=== PATIENT | male | born 1980 | race American Indian/Alaskan Native ===

== ENCOUNTER 2016-10-04 02:00 | Emergency (ER) | payer OTHER ==
[2016-10-04 02:02] VITALS: BMI 29.9
[2016-10-04 02:38] VITALS: BP 121/78; PULSE 65; RESP 18; TEMP 98.2; O2SAT 97
[2016-10-04] MEDS ORDERED: TDAP Vaccine 0.5 mL Syr IM ONE (02:48)
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
== END 2016-10-04 05:17 | disposition left against medical advice (07) ==
LOC: ED 02:00
DX: S50.872A Other superficial bite of left forearm, initial encounter (principal); W50.3XXA Accidental bite by another person, initial encounter; Y93.89 Activity, other specified; Y92.89 Other specified places as the place of occurrence of the external cause; Z23 Encounter for immunization